=== PATIENT | male | born 2005 | race Caucasian/White ===

== ENCOUNTER 2024-06-13 04:59 | Emergency (ER) | payer SELFPAY ==
[2024-06-13] VITALS (36 sets, daily range): BP systolic 109–177; BP diastolic 56–140; PULSE 102–169; RESP 16–33; TEMP 35.4–37.2; O2SAT 93–100
--- NOTE | ~2024-06-13 | CT_ITS ---
Noncontrast CT scan of the cervical spine Technique: Multiple contiguous axial [address] images of the cervical spine were obtained and rec onstructed in 2D sagittal and coronal planes on the acquisition scanner. Dose reduction technique was used on this scan by utilizing automated exposure control, adjustment of the mA and/or kV according to patient size. The dose-length product (DLP) was 507.42 mGy-cm. Clinical History: Pain Findings: No fractures or dislocations. Unremarkable visualized bony structures. The intervertebral disc spaces are preserved. No prevertebral soft tissue swelling. Impression: No fracture or subluxation of the cervical spine. Reviewed, dictated and finalized at location . Impression: No fracture or subluxation of the cervical spine.
--- NOTE | ~2024-06-13 | CT_ITS ---
Non-contrast Head CT History: Altered mental status Technique: Axial non-contrast imaging of the brain was performed. Dose reduction technique was used on this scan by utilizing automated exposure control and iterative reconstruction technique. The dose -length product (DLP) was 681.00 mGy-cm. Findings: There is no evidence of intracranial hemorrhage, mass lesion, or acute infarct. Brain par enchyma appears normal. The ventricles and subarachnoid spaces are normal in size. The calvarium ap pears normal. The visualized paranasal sinuses and mastoid air cells are clear. Impression: No significant abnormality seen. Reviewed, dictated and finalized at location . Impression: No significant abnormality seen.
--- NOTE | ~2024-06-13 | XR_ITS ---
Portable chest x-ray Comparison: 07/02/2010 Clinical History: Tube placement Findings: Endotracheal tube in place, tip at the level of T2-T3. NG tube in place, side port of the distal esophagus. Lungs are clear, without focal consolidation or pleural effusion. Cardiomediastina l silhouette is stable. Bones and soft tissues are unremarkable. Impression: Support tubes in place, as above. Further advancement NG tube is advised to ensure side port placemen t below the diaphragm. Consider mild advancement of ET tube as well. Clear lungs. Reviewed, dictated and finalized at location M. Impression: Support tubes in place, as above. Further advancement NG tube is advised to ens ure side port placement below the diaphragm. Consider mild advancement of ET tu be as well. Clear lungs.
--- NOTE | ~2024-06-13 | CT_ITS ---
Clinical Indication: Unresponsive CT Scan of the Chest, Abdomen, and Pelvis with Contrast: Technique: Contiguous sections were acquired throughout the chest, abdomen, and pelvis after intraven ous administration of 100 cc of Omnipaque 350. Dose reduction technique was used on this scan by dax cruz automated exposure control and iterative reconstruction technique. The dose-length product (DL P) was 773.41 mGy-cm. Findings: NG tube tip is just below the GE junction, side port in the distal esophagus likely. There is no evidence of any significant mediastinal, hilar or axillary lymphadenopathy. The mediastin al soft tissues appear normal. There is no evidence of pleural or pericardial effusion. The lungs are clear. No pulmonary nodules or infiltrates are noted. The liver, spleen, pancreas, gallbladder, adrenals and kidneys are within normal limits. No evidence of aortic aneurysm. No lymphadenopathy. No bowel obstruction or bowel wall thickening. There is no evidence to suggest acute appendicitis. Urinary bladder is collapsed around a Rothman catheter. No pelvic mass seen. No ascites. Impression: No acute abnormality evident. Further advancement of NG tube into the stomach advised. Reviewed, dictated and finalized at [facility]. Impression: No acute abnormality evident. Further advancement of NG tube into the stomach advised.
--- NOTE | 2024-06-13 05:08 | PC.NURSE ---
Addendum entered by Quyen Webber RN 06/13/24 07:14: og 25 at the lip Original Note: edp at bedside to prepare for intubation. 0508 ativan 2mg iv push 0508 etomidate 20mg 0509 succinylcholine 100mg 0509 intubated by edp lipsmeyer with a 7.5 ett, 23 @ teeth 0509 color change 0513 temp govea placed by jose g malik 0515 OG placed by JOSE G Harvey 16fr [facility], 0517 propofol gtt 5mg/kg/hr @ 2.1ml/hr 0520 stat portable - insert the og tube and ett 1-2 more cm at this time. unable to advance due to pt clamping down too tightly. 0523 ett advanced to 25cm. stat xray showed 0525 propofol increased to 10mg/kg/hr @ 5ml/hr
--- NOTE | 2024-06-13 05:12 | ECG_ITS ---
Test Date: 2024-06-13 07:09:35 Measurements Intervals [place] Rate: 107 P: 77 KS: 154 QRS: 76 QRSD: 100 T: 58 QT: 355 QTc: 475 Interpretive Statements SINUS TACHYCARDIA MINIMAL Q WAVES- INF/LAT LEADS ABNORMAL ECG No previous ECG available for comparison Electronically Signed On 06-13-2024 08:15:31 CDT by Familia Trammell D.O.
[2024-06-13 05:34] LABS: Basophils Absolute Auto 0.1 K/mm3 (0.0-0.1); Basophils Percent Auto 0.8 % (0.2-1.2); Eosinophils Absolute Auto 0.4 K/mm3 (0-0.3); Eosinophils Percent Auto 2.6 % (0-4.4); Hematocrit 53.4 % (42.0-52.0); Immature Granulocyte Absolute 0.05 K/mm3 (0.00-0.031); Immature Granulocyte Percent A 0.3 % (0-0.5); Lymphocytes Absolute Auto 8.07 K/mm3 (0.9-3.2); Lymphocytes Percent Auto 53.1 % (18.3-44.2); Mean Corpuscular HGB Conc 33.7 g/dl (32-36); Mean Corpuscular Hemoglobin 32.3 pg (26-34); Mean Corpuscular Volume 95.7 fl (80-100); Mean Platelet Volume 9.7 fl (7.4-10.4); Monocytes Absolute Auto 1.2 K/mm3 (0.1-0.6); Monocytes Percent Auto 7.9 % (2.6-8.5); Neutrophils Absolute Auto 5.4 K/mm3 (1.3-6.7); Neutrophils Percent Auto 35.3 % (45.5-73.1); Platelet Count Result 331 k/mm3 (150-375); Red Blood Count 5.58 M/mm3 (4.6-6.20); Red Cell Distribution Width 12.1 % (11.5-14.5); White Blood Count 15.2 K/mm3 (4.5-10.0)
--- NOTE | 2024-06-13 05:35 | PC.NURSE ---
0527 propofol increased to 50, fentanyl started a 100, versed 10.
[2024-06-13 05:41] LABS: Add Urine Microscopic? YES; Appearance Urine Clear (Clear); Bacteria Urine None Seen /hpf; Bilirubin Urine Negative (Negative); Blood Urine 1+ (Negative); Color Urine Yellow (Yellow); Glucose Urine UA Negative (Negative); Ketones Urine Negative (Negative); Leukocyte Esterase Ur Negative LEU/UL (Negative); Nitrate Urine Negative (Negative); Protein Urine 1+ mg/dL (Negative); RBC Urine 0-2 /hpf (0-2); Squamous Epithelial Cell Urine None Seen /hpf (Few); Urobilinogen Urine 0.2 mg/dL (<2.0); WBC Urine 0-5 /hpf (0-3); pH Urine 5.5 (5.0-9.0)
[2024-06-13 05:42] LABS: Triglycerides 328 mg/dL (<150)
[2024-06-13 05:45] LABS: Lactic Acid Reflex 10.7 mmol/L (0.7-2.0)
[2024-06-13 05:48] LABS: Amphetamine Screen Urine Positive (Negative); Barbiturate Screen Urine Negative (Negative); Benzodiazepines Screen Urine Negative (Negative); Cannabinoid Screen Urine Positive (Negative); Cocaine Screen Urine Negative (Negative); Methadone Screen Urine Negative (Negative); Opiate Screen Urine Negative (Negative); Phencyclidine Screen Urine Negative (Negative)
[2024-06-13 05:50] LABS: Partial Thromboplastin Time 28.2 Seconds (22.3-36.8); Prothrombin Time 13.9 Seconds (11.1-14.7)
[2024-06-13 06:00] LABS: Acetaminophen < 10 ug/mL (10-30); Ethanol 239 mg/dL (<10); Salicylate < 1.0 mg/dL (2-20)
[2024-06-13 06:01] LABS: Alanine Aminotransferase 49 U/L (6-50); Albumin Level 5.3 g/dL (3.5-5.1); Alkaline Phosphatase 72 U/L (38-126); Anion Gap 26 mmol/L (4-12); Aspartate Amino Transferase 45 U/L (17-59); Bilirubin,Total 0.5 mg/dL (0.2-1.3); Blood Urea Nitrogen 6 mg/dL (9-20); Calcium 8.9 mg/dL (8.4-10.2); Carbon Dioxide 14 mmol/L (22-30); Chloride 106 mmol/L (98-107); Creatine Kinase 197 U/L (55-170); Estimated CRCL calculation 127 ml/min; Estimated Glomerular Filt Rate > 60; Glucose 120 mg/dL (65-110); Lipase 135 U/L (23-300); Magnesium 2.4 mg/dL (1.6-2.3); Potassium 4.8 mmol/L (3.4-5.0); Sodium 146 mmol/L (137-145)
[2024-06-13 06:08] LABS: Influenza A QL RT-PCR Negative (Negative); Influenza B QL RT-PCR Negative (Negative); RSV RNA, RT-PCR Negative (Negative); SARS-CoV-2 RNA PCR Negative (Negative)
[2024-06-13 06:13] LABS: Troponin I < 0.012 ng/mL (0.000-0.034)
[2024-06-13] MEDS: SODIUM CHLORIDE 0.9% IV 1,000 ML 999 ML IV CONT ×3 (06:18→06:19)
[2024-06-13] MEDS: levETIRAcetam 1500MG/NACL100ML 1,500 MG/100 ML BAG 400 MG IVPB (06:23)
--- NOTE | 2024-06-13 06:44 | PC.NURSE ---
Vt 450 R 16 50% Peep 5
[2024-06-13] MEDS: ENTER PT WEIGHT XX (06:59)
[2024-06-13] MEDS: FENTANYL 2,500MCG/NS250ML(*CRX 2,500 MCG/250 ML BAG 10 MCG IV CONT (07:00)
[2024-06-13] MEDS: MIDAZOLAM 100MG/NS 100ML(*CRX) 100 MG/100 ML BAG 10 MG IV CONT (07:00)
--- NOTE | 2024-06-13 07:04 | ED.GENADULT ---
HPI - General Adult General Chief complaint: Seizure <Ubaldo House MD - Last Filed: 06/13/24 07:10> Stated complaint: SZ, ETOH+, UNRESPONSIVE <Ubaldo House MD - Last Filed: 06/13/24 07:10> Time Seen by Provider: 06/13/24 05:11 <Ubaldo House MD - Last Filed: 06/13/24 07:10> History of Present Illness HPI narrative: Patient is a 18-year-old gentleman who presents emergency department with chief complaint of altered mental status possible seizure possible intoxication. Patient apparently was at home and the family heard goran the id after which they sought found the patient unresponsive and they believe was having possible seizure-like activity when EMS arrived they found the patient and AD cerebral type posturing with dilated pupils he was given Narcan in the field a nasopharyngeal airway was placed in the patient and he was being assisted with bag-valve ventilations. History is limited as the patient is unresponsive <Ubaldo House MD - Last Filed: 06/13/24 07:10> Patient is a 18-year-old gentleman who presents emergency department with chief complaint of altered mental status possible seizure possible intoxication. Patient apparently was at home and the family heard the patient his the ground after which they found the patient unresponsive and they believe was having possible seizure-like activity. When EMS arrived they found the patient and had decerebrate type posturing with dilated pupils. He was given Narcan in the field a nasopharyngeal airway was placed in the patient and he was being assisted with bag-valve ventilations. History is limited as the patient is unresponsive <Deniz Ross MD - Last Filed: 06/13/24 09:12> Related Data Allergies/adverse reactions: Allergies Allergy/AdvReac Type Severity Reaction Status Date / Time penicillin G Allergy Mild Verified 05/17/22 08:36 <Ubaldo House MD - Last Filed: 06/13/24 07:10> Review of Systems Review of Systems: A 10 system review of systems was completed on the patient and is negative except for what is stated in the HPI. Nursing and ancillary documentation was reviewed. <Ubaldo House MD - Last Filed: 06/13/24 07:10> [facility] Past Medical History Medical History: Medical History (Updated 06/13/24 @ 09:12 by Deniz Ross MD) Healthy adult male <Ubaldo House MD - Last Filed: 06/13/24 07:10> Surgical History Surgical History: Surgical History (Updated 06/13/24 @ 09:12 by Deniz Ross MD) No pertinent past surgical history <Ubaldo House MD - Last Filed: 06/13/24 07:10> Exam Narrative: GENERAL: Ill-appearing diaphoretic HEAD: Normocephalic, atraumatic. EYES: Dilated pupils,. ENT: Nares clear, no rhinorrhea or epistaxis. Mucous membranes moist. NECK: Supple. CHEST: Clear to auscultation. No respiratory distress. HEART: Tachycardic rate and rhythm. No murmur heard. Normal peripheral pulses. ABDOMEN: Soft, nontender, nondistended, normal active bowel sounds. EXTREMITIES: Normal range of motion. No edema. SKIN: Warm, dry, no rash. There is an abrasion present across the abdominal wall NEURO: The cerebral type posturing unresponsive PSYCH: Unable to assess <Ubaldo House MD - Last Filed: 06/13/24 07:10> Course Course Emergency Course: 09: Patient continues to be intubated and sedated while in the ER. Pupils are dilated and do not seem to react to light. I have discussed the case with neurologist Dr. Ng, ICU physician Dr. Shrestha. The hospitalist Dr. Gutierrez is the accepting. Patient will be flown due to the nature of his illness and the need for urgent evaluation by neurology in the occ ther. Patient is on 50% FiO2. The previous physician that cared for this patient reports approximately 10 min of seizing. Mother at bedside and appropriately concerned, reports his seizure wa
[2024-06-13] MEDS: PROPOFOL IV EMULSION 100 ML 21 MG IV CONT ×2 (07:52→09:22)
--- NOTE | 2024-06-13 07:54 | PC.NURSE ---
0700 This RN assumed care of pt, report received from JOSE G Loera. This RN scanned pts sedation medications to have current up-to-date charting for titrations. All previous titrations were made by JOSE G Loera and are noted in nursing notes.
[2024-06-13 08:29] LABS: Reflex Lactic Acid Yes or No Add Lactic
[2024-06-13] MEDS: SODIUM CHLORIDE 0.9% IV 1,000 ML 150 ML IV CONT (08:48)
[2024-06-13 08:59] LABS: Lactic Acid 1.2 mmol/L (0.7-2.0)
[2024-06-13] MEDS: levETIRAcetam IV 750 MG in DEXTROSE 5% 100 ML 430 MG IVPB (09:00)
--- NOTE | 2024-06-13 09:02 | PC.NURSE ---
Accepting Dr Jadiel Gutierrez Encephalopathy Rm 254 [facility] [address] [place] [address] Dr Sauer Mo Electric Cutter Operator [phone] Rn Station [phone]
== END 2024-06-13 10:29 | disposition short-term general hospital (02) ==
PROVIDERS: Emergency Provider Emergency Medicine; PCP Pediatrics
DX: R41.82 Altered mental status, unspecified (principal); E87.20 Acidosis, unspecified; R56.9 Unspecified convulsions; F10.129 Alcohol abuse with intoxication, unspecified; F15.10 Other stimulant abuse, uncomplicated; Y90.7 Blood alcohol level of 200-239 mg/100 ml; Z20.822 Contact with and (suspected) exposure to COVID-19; R00.0 Tachycardia, unspecified
CPT/HCPCS: 31500; 36415; 70450; 71260; 72125; 74177; 80053; 80307; 81001; 82550; 83605; 83690; 83735; 84145; 84478; 84484; 85025; 85610; 85730; 87637; 93005; 94002; 96361; 96365; 96366; 96367; 96375; 99285; J0330; J1953; J2250; J2704; J3010; J7030; Q9967